=== PATIENT | male | born 1950 | race Caucasian/White ===

== ENCOUNTER → 2016-11-28 | Outpatient (CLI) | payer OTHER ==
[~2016-11-28] VITALS: Ht 175.3 cm; Wt 184.1 kg
[~2016-11-28] MED LIST: ADVA500A INH; ATOR1TAB18 PO; CANA100T PO; CHLO25TA2 PO; CLON0.1T PO; DOXA4TAB3 PO; GLIP10TA6 PO; INSU100V2 SQ; INSULIN HUMAN REGULAR 1,000 UNITS/10 ML VIAL SQ PRN; LACTATED RINGER'S 1000 ML IV SCH; LOSA100T PO; METF1000 PO; METO100T PO; METOPROLOL TARTRATE 25 MG TAB PO PRN; METOPROLOL TARTRATE 50 MG TAB PO ONE; MONT10TA4 PO; NOVOLOGP2 SQ; NOVONP2 SQ; NOVORP2 SQ; PROPOFOL 200 MG/20 ML AMP IV ONE; SODIUM CHLORID 0.9% 500 ML IV SCH; VENTAER INH; XARE20TA PO
[2016-11-28 13:20] VITALS: BP 180/53; PULSE 65; RESP 18; TEMP 98.6; O2SAT 94
[2016-11-28 17:19] VITALS: BP 165/80; PULSE 56; RESP 20; TEMP 97.7; O2SAT 97
--- NOTE | 2016-11-28 23:06 | EKG ---
Date Performed: 11/28/2016 Time Performed: 13:28:28 PTAGE: 66 years EKG: SINUS BRADYCARDIA BORDERLINE ECG PREVIOUS TRACING : 04/18/2001 17.12 Compared to prior tracing no significant change DOCTOR: Harman La Interpretating Date/Time 11/28/2016 23:06:02
--- NOTE | 2016-11-29 07:12 | MR ---
cc: GEOVANNY HAYES M.D., HARRY M.D. DATE OF 1950 DATE OF PROCEDURE 11/28/2016 PROCEDURE Colonoscopy with polypectomies. PAPIER MACHE' MOLDER Performed by Dr. William Sparrow The patient is an outpatient. INDICATIONS FOR PROCEDURE History of colon polyps. MEDICATIONS Sedation per Anesthesiology. INSTRUMENT The Pentax video colonoscope. PROCEDURE After obtaining written informed consent, the patient was placed in the left lateral decubitus position. Adequate sedation was administered. A digital rectal examination was performed. No gross lesions were noted. The prostate was not enlarged or nodular. The colonoscope was advanced to the cecum. The appendiceal orifice and ileocecal valve appeared normal. Upon withdrawal of the instrument the mucosal surfaces were well-visualized. Six small polyps were removed, all measuring less than 5-6 mm, one in the ascending colon, two in the region of the hepatic flexure, one in the proximal transverse colon, two in the sigmoid colon (one may have been sigmoid colon and one may have been descending colon). Retroflexion of the instrument in the rectum revealed no abnormalities. The instrument was withdrawn. The procedure was terminated. The patient tolerated it well and there no apparent complications. Upon completion he was sedated and had normal, stable vital signs. IMPRESSION 1. Colonoscopy to the cecum. 2. Six small polyps removed with cold snare polypectomy. 3. No diverticulosis evident. DISPOSITION The patient is to be observed per routine postprocedure protocol. He may return home, resume his prior diet and medications. We will contact him next week with the histology report and determine timing for follow-up evaluation. MD MO Bennett/JEN /4:26 PM /7:06 AM
== END ==
LOC: HSDC 12:17
DX: Z12.11 Encounter for screening for malignant neoplasm of colon (principal); Z86.010 Personal history of colon polyps; D12.3 Benign neoplasm of transverse colon; D12.4 Benign neoplasm of descending colon; I10 Essential (primary) hypertension
CPT/HCPCS: 00810; 45385; 88305; 93005; J1815; J7120

== ENCOUNTER → 2017-03-21 | Day surgery (SDC) | payer OTHER ==
[~2017-03-21] VITALS: Ht 172.7 cm; Wt 181.5 kg
[~2017-03-21] MED LIST changes: +*RESP: ALBUTEROL 2.5 MG/3 ML NEB (PRN) PERIprocedural Use ONLY NEB ONE; +CHLORHEXIDINE GLUCONATE 2 % 1 PACK (2 CLOTHS) TOPICAL PRN; +DO NOT ADM ANY ANTICOAGULANT DRUGS PRN; +FLUMAZENIL 0.5 MG/5 ML VIAL IV PRN; +LACTATED RINGER'S 1000 ML IV PRN; -LACTATED RINGER'S 1000 ML IV SCH; -METOPROLOL TARTRATE 50 MG TAB PO ONE; +NALOXONE HCL 0.4 MG/ML AMP IV PRN; +POVIDONE IODINE 5% (ANTISEPSIS KIT) 4 APPLICATIONS EACH NARE PRN; +SODIUM CHLORID 0.9% 500 ML IV PRN; -SODIUM CHLORID 0.9% 500 ML IV SCH
--- NOTE | 2017-03-21 08:53 | GIPROC ---
[facility] [address] [facility]. [facility], [id number] EGD PROCEDURE REPORT EXAM DATE: 03/21/2017 PATIENT NAME: Barney Garza MR #: [id number] BIRTHDATE: 1950 ATTENDING: Rohit Dallas MD ORDER #: [id number] BIOLOGY PROFESSOR: Adonay Ward and Una Bruno STATUS: outpatient INDICATIONS: The patient is a 66 yr old male here for an EGD due to nausea PROCEDURE PERFORMED: EGD w/ biopsy MEDICATIONS: Per Anesthesia and None. TOPICAL ANESTHETIC: none CONSENT: The patient understands the risks and benefits of the procedure and understands that these risks include, but are not limited to: sedation, allergic reaction, infection, perforation and/or bleeding. Alternative means of evaluation and treatment include, among others: physical exam, x-rays, and/or surgical intervention. The patient elects to proceed with this endoscopic procedure. medical equipment was checked for proper function. Hand hygiene and appropriate measures for infection prevention was taken. After the risks, benefits and alternatives of the procedure were thoroughly explained, Informed consent was verified, confirmed and timeout was successfully executed by the treatment team. The patient was anesthetized with anesthesia and the Pentax EG-[id number] endoscope was introduced through the mouth and advanced to the second portion of the duodenum. There was mild gastritis distal antrum. GE junction had concern for mild barretts. Biopsy was taken of the antrum to check for h. pylori and of the distal esophagus to rule out barretts. Retroflexed views revealed no abnormalities The gastroscope was then slowly withdrawn and removed. STOMACH: There was mild gastritis in the gastric antrum. ESOPHAGUS: There was short segment Meade's esophagus found in the distal esophagus and at the gastroesophageal junction. Mild. ADVERSE EVENTS: There were no complications. IMPRESSIONS: 1. There was mild gastritis in the gastric antrum 2. There was short segment Meade's esophagus found in the distal esophagus and at the gastroesophageal junction 3. Retroflexed views revealed no abnormalities RECOMMENDATIONS: Await biopsy results. Biopsy results will not be ready for 7-10 days. If you don't hear from us in two weeks, call our office for biopsy results. PATIENT CONDITION: fair DISPOSITION: Home REPEAT EXAM: NONE Rohit Dallas MD eSigned: Rohit Dallas MD 03/21/2017 8:53 AM cc: Lawrence Diaz M.D.
[2017-03-21 09:35] VITALS: BP 168/67; PULSE 65; RESP 20; TEMP 98; O2SAT 100
== END | disposition home or self-care (01) ==
LOC: HSDC 05:39
PROVIDERS: ATTEND Surgery
DX: K29.50 Unspecified chronic gastritis without bleeding (principal); K22.70 Barrett's esophagus without dysplasia; I10 Essential (primary) hypertension; J45.909 Unspecified asthma, uncomplicated; E11.9 Type 2 diabetes mellitus without complications; E78.5 Hyperlipidemia, unspecified; I82.409 Acute embolism and thrombosis of unspecified deep veins of unspecified lower extremity; E66.01 Morbid (severe) obesity due to excess calories; G47.30 Sleep apnea, unspecified; Z68.44 Body mass index [BMI] 60.0-69.9, adult; Z87.891 Personal history of nicotine dependence; Z85.820 Personal history of malignant melanoma of skin; Z79.84 Long term (current) use of oral hypoglycemic drugs; Z79.51 Long term (current) use of inhaled steroids; Z79.4 Long term (current) use of insulin
CPT/HCPCS: 43239; 88305; 88312; 94664; J7120; J7613

== ENCOUNTER 2017-09-23 07:30 | Inpatient (IN) | payer OTHER, MEDICARE ==
[~2017-09-23] VITALS: Ht 175.3 cm; Wt 179.8 kg
[~2017-09-23 07:30] MED LIST changes: -*RESP: ALBUTEROL 2.5 MG/3 ML NEB (PRN) PERIprocedural Use ONLY NEB ONE; -ADVA500A INH; -ATOR1TAB18 PO; +ATOR80TA45 PO; -CHLORHEXIDINE GLUCONATE 2 % 1 PACK (2 CLOTHS) TOPICAL PRN; -DO NOT ADM ANY ANTICOAGULANT DRUGS PRN; -FLUMAZENIL 0.5 MG/5 ML VIAL IV PRN; -INSU100V2 SQ; -INSULIN HUMAN REGULAR 1,000 UNITS/10 ML VIAL SQ PRN; -LACTATED RINGER'S 1000 ML IV PRN; -METOPROLOL TARTRATE 25 MG TAB PO PRN; -NALOXONE HCL 0.4 MG/ML AMP IV PRN; -NOVOLOGP2 SQ; -POVIDONE IODINE 5% (ANTISEPSIS KIT) 4 APPLICATIONS EACH NARE PRN; -PROPOFOL 200 MG/20 ML AMP IV ONE; -SODIUM CHLORID 0.9% 500 ML IV PRN; -XARE20TA PO
[2017-09-24] MEDS ORDERED: FLUT1INH7 INH (15:42)
[2017-09-24] MEDS ORDERED: WARF-23 PO (15:42)
[2017-09-24] MEDS ORDERED: IPRA17I INH (15:42)
[2017-09-25] MEDS ORDERED: BUPIVACAINE/EPINEPHRINE 0.25% PF 30 ML VIAL ONE ×2 (07:14→12:18)
[2017-09-25] MEDS ORDERED: LACTATED RINGER'S 1000 ML IV PRN (07:15)
[2017-09-25] MEDS ORDERED: SODIUM CHLORID 0.9% 500 ML IV PRN (07:15)
[2017-09-25] MEDS ORDERED: METOPROLOL TARTRATE 25 MG TAB PO PRN (07:15)
[2017-09-25] MEDS ORDERED: CHLORHEXIDINE GLUCONATE 2 % 1 PACK (2 CLOTHS) TOPICAL PRN (07:15)
[2017-09-25] MEDS ORDERED: POVIDONE IODINE 5% (ANTISEPSIS KIT) 4 APPLICATIONS EACH NARE PRN (07:15)
[2017-09-25] MEDS ORDERED: metroNIDAZOLE 500 MG INJ 100 ML IV SCH (07:30)
[2017-09-25] MEDS ORDERED: ACETAMINOPHEN 1000 MG/100 ML 100 ML IV SCH (07:30)
[2017-09-25] MEDS ORDERED: SCOPOLAMINE 1.5 MG PATCH T-DERMAL SCH (07:30)
[2017-09-25] MEDS ORDERED: ONDANSETRON HCL 4 MG/2 ML VIAL IV PUSH SCH (07:30)
[2017-09-25] MEDS ORDERED: APREPITANT 40 MG CAP PO SCH (07:30)
[2017-09-25] MEDS ORDERED: ceFAZolin 2 GM PREMIX 50 ML IV SCH (07:30)
[2017-09-25 08:21] LABS: PROTHROMBIN TIME - PATIENT 10.3 SEC (9.8-11.6)
[2017-09-25] MEDS ORDERED: LIDOCAINE HCL 1% PF 5 ML SYRINGE OTHER ONE (12:00)
[2017-09-25] MEDS ORDERED: ONDANSETRON HCL 4 MG/2 ML VIAL IV PUSH ONE (12:00)
[2017-09-25] MEDS ORDERED: LACTATED RINGER'S 1000 ML INJ 1,000 ML IV ONE (12:00)
[2017-09-25] MEDS ORDERED: PROPOFOL 200 MG/20 ML AMP IV ONE (12:00)
[2017-09-25] MEDS ORDERED: GLYCOPYRROLATE 1 MG/5 ML SYRINGE IV PUSH ONE (12:00)
[2017-09-25] MEDS ORDERED: DEXAMETHASONE SOD PHOS 4 MG/ML VIAL IV ONE (12:00)
[2017-09-25] MEDS ORDERED: NEOSTIGMINE 5 MG/5 ML SYRINGE IV PUSH ONE (12:00)
[2017-09-25] MEDS ORDERED: ROCURONIUM INJ 50 MG/5 ML SYRINGE IV PUSH ONE (12:00)
[2017-09-25] MEDS ORDERED: HYDROmorphone HCL PF 2 MG/ML VIAL ONE (12:43)
[2017-09-25] MEDS ORDERED: diphenhydrAMINE HCL 50 MG/ML VIAL IV PUSH PRN (15:15)
[2017-09-25] MEDS ORDERED: Post-op Orders (for Pharmacy) OTHER ONE (15:15)
[2017-09-25] MEDS ORDERED: ONDANSETRON HCL 4 MG/2 ML VIAL IV PUSH PRN ×2 (15:15)
[2017-09-25] MEDS ORDERED: diphenhydrAMINE HCL ELIXIR 12.5 MG/5 ML CUP PO PRN (15:15)
[2017-09-25] MEDS ORDERED: GLUCAGON 1 MG/ML VIAL OTHER PRN (15:15)
[2017-09-25] MEDS ORDERED: DEXTROSE 50% IN WATER 50 ML VIAL(D50) IV PUSH PRN (15:15)
[2017-09-25] MEDS ORDERED: ENALAPRILAT 1.25 MG/ML VIAL IV PUSH PRN (15:15)
[2017-09-25] MEDS ORDERED: ACETAMINOPHEN 325MG/HYDROcodone 7.5MG/15ML UDC PO PRN (15:15)
[2017-09-25] MEDS ORDERED: NALOXONE HCL 0.4 MG/ML AMP IV PUSH PRN (15:15)
[2017-09-25] MEDS ORDERED: SODIUM CHLORIDE 0.9% FLUSH 10 ML FLUSH IV FLUSH PRN (15:15)
[2017-09-25] MEDS ORDERED: DO NOT ADM ANY ANTICOAGULANT DRUGS PRN (15:25)
[2017-09-25] MEDS ORDERED: *morphine SULFATE 8 MG/ML PERIprocedure ONLY ONE (15:47)
[2017-09-25] MEDS: 1/2 NS + KCL 20 MEQ INJ 1,000 ML IV SCH ×2 (16:00→22:25)
[2017-09-25] MEDS ORDERED: *RESP: ALBUTEROL 2.5 MG/3 ML NEB (PRN) PERIprocedural Use ONLY NEB ONE (16:18)
[2017-09-25] MEDS: MORPHINE SULFATE 30 MG/30 ML PCA IV SCH (16:44)
[2017-09-25] MEDS: RESP: ALBUTEROL 2.5 MG/3 ML NEB (SCH) INH ×2 (17:00→23:51)
[2017-09-25] MEDS: METOCLOPRAMIDE HCL 10 MG/2 ML VIAL IV PUSH SCH ×2 (17:11→22:19)
[2017-09-25] MEDS: INSULIN NovoLIN REGULAR SUPPLEMENTAL SCALE SQ SCH ×2 (17:23→22:13)
[2017-09-25] MEDS ORDERED: ENOXAPARIN SODIUM 40 MG/0.4 ML SYRINGE SQ ONE (20:00)
[2017-09-25 20:11] VITALS: BP 118/46; PULSE 88; RESP 18; TEMP 98.5; O2SAT 95
[2017-09-25] MEDS: PCA - TOTAL MG MORPHINE DELIVERED PER SHIFT SCH (22:00)
[2017-09-25] MEDS: SODIUM CHLORIDE 0.9% FLUSH 10 ML FLUSH IV FLUSH SCH (22:20)
[2017-09-25] MEDS: metroNIDAZOLE 500 MG INJ 100 ML IV SCH (22:23)
[2017-09-25 23:51] VITALS: O2SAT 93
[2017-09-26] VITALS (7 sets, daily range): BP systolic 120–147; BP diastolic 56–63; PULSE 84–98; RESP 16–18; TEMP 96.5–98.6; O2SAT 90–96
[2017-09-26] MEDS: PCA - TOTAL MG MORPHINE DELIVERED PER SHIFT SCH (05:28)
[2017-09-26] MEDS: metroNIDAZOLE 500 MG INJ 100 ML IV SCH ×2 (05:35→12:14)
[2017-09-26] MEDS: METOCLOPRAMIDE HCL 10 MG/2 ML VIAL IV PUSH SCH ×2 (05:36→10:57)
[2017-09-26 07:00] LABS: AUTOMATED NEUTROPHIL # 8.3 TH/MM3 (1.8-7.7); BASOPHIL % 0.2 % (0.0-2.0); HEMOGLOBIN 12.5 GM/DL (13.0-17.0); LYMPH % 12.7 % (9.0-44.0); LYMPHOCYTE # 1.3 TH/MM3 (1.0-4.8); MEAN CELL VOLUME 93.2 FL (80.0-100.0); MEAN CORPUSCULAR HEMOGLOBIN 30.7 PG (27.0-34.0); MEAN CORPUSCULAR HGB CONC 32.9 % (32.0-36.0); MEAN PLATELET VOLUME 9.4 FL (7.0-11.0); MONO % 8.3 % (0.0-8.0); MONOCYTE # 0.9 TH/MM3 (0-0.9); NEUT % 78.8 % (16.0-70.0); PLATELET COUNT 131 TH/MM3 (150-450); RED BLOOD COUNT 4.08 MIL/MM3 (4.50-5.90); RED CELL DISTRIBUTION WIDTH 15.9 % (11.6-17.2); WHITE BLOOD COUNT 10.5 TH/MM3 (4.0-11.0)
[2017-09-26] MEDS: RESP: ALBUTEROL 2.5 MG/3 ML NEB (SCH) INH ×5 (07:17→23:59)
[2017-09-26 07:23] LABS: BICARBONATE 23.8 MEQ/L (21.0-32.0); CALCIUM 8.1 MG/DL (8.5-10.1); CREATININE 1.66 MG/DL (0.60-1.30); MAGNESIUM 1.9 MG/DL (1.5-2.5)
[2017-09-26] MEDS: MORPHINE SULFATE 30 MG/30 ML PCA IV SCH (07:41)
[2017-09-26] MEDS ORDERED: ENOXAPARIN SODIUM 60 MG/0.6 ML SYRINGE SQ SCH (08:00)
[2017-09-26] MEDS: PANTOPRAZOLE SOD 40 MG DELAYED RELEASE TAB PO SCH (08:30)
[2017-09-26] MEDS: INSULIN NovoLIN REGULAR SUPPLEMENTAL SCALE SQ SCH ×4 (08:32→20:37)
[2017-09-26] MEDS: SODIUM CHLORIDE 0.9% FLUSH 10 ML FLUSH IV FLUSH SCH ×2 (08:37→20:37)
[2017-09-26] MEDS: 1/2 NS + KCL 20 MEQ INJ 1,000 ML IV SCH ×3 (09:08→20:38)
[2017-09-26] MEDS ORDERED: INFLUENZA VIRUS VACCINE (QUADRIVALENT) 0.5 ML SYR IM ONE (10:00)
[2017-09-26] MEDS: metFORMIN HCL 500 MG TAB PO SCH ×2 (10:57→16:44)
[2017-09-26] MEDS ORDERED: IPRATROPIUM BROMIDE 17 MCG/ACT 12.9 GM INHALER INH SCH (11:00)
[2017-09-26] MEDS: TIOTROPIUM BROMIDE 18 MCG INH INH SCH (11:29)
[2017-09-26] MEDS: FLUTICASONE 200 MCG/VILANTEROL 25 MCG INHALER INH SCH (11:29)
--- NOTE | 2017-09-26 11:39 | HHI.PR ---
Subjective Subjective Notes Fells good No GI complaints Tolerating PO fluids Objective Vitals/I&O Vital Signs Date Time Temp Pulse Resp B/P (MAP) Pulse Ox O2 Delivery O2 Flow Rate FiO2 09/26/17 08:00 97.5 90 17 147/63 (91) 90 09/25/17 23:51 Nasal Cannula 3.00 Labs Laboratory Tests Test 09/26/17 06:26 White Blood Count 10.5 Red Blood Count 4.08 Hemoglobin 12.5 Hematocrit 38.0 Mean Corpuscular Volume 93.2 Mean Corpuscular Hemoglobin 30.7 Mean Corpuscular Hemoglobin Concent 32.9 Red Cell Distribution Width 15.9 Platelet Count 131 Mean Platelet Volume 9.4 Neutrophils (%) (Auto) 78.8 Lymphocytes (%) (Auto) 12.7 Monocytes (%) (Auto) 8.3 Eosinophils (%) (Auto) 0.0 Basophils (%) (Auto) 0.2 Neutrophils # (Auto) 8.3 Lymphocytes # (Auto) 1.3 Monocytes # (Auto) 0.9 Eosinophils # (Auto) 0.0 Basophils # (Auto) 0.0 CBC Comment DIFF FINAL Differential Comment Blood Urea Nitrogen 37 Creatinine 1.66 Random Glucose 262 Calcium Level 8.1 Magnesium Level 1.9 Sodium Level 136 Potassium Level 4.6 Chloride Level 103 Carbon Dioxide Level 23.8 Anion Gap 9 Estimat Glomerular Filtration Rate 42 Cardiovascular: Regular Lungs: Wheezes Abdomen: Post-op tenderness Extremities: Perfused Wound Wound : Wound Location: Abdomen Appearance: Clean & Dry A/P Assessment and Plan 67yo M POD# laparoscopic RnY -Restart metformin, change glipizide to 5mg OD -Restart inhalers, evaluate for home walk test -Continue with frequent ambulation -Continue to increase fluids as tolerated Discharge Planning D/C home probably tomorrow Jina White Sep 26, 2017 11:39
[2017-09-26] MEDS: glipiZIDE 5 MG TAB PO SCH (13:02)
[2017-09-26] MEDS ORDERED: METOCLOPRAMIDE HCL 10 MG/2 ML VIAL IV PUSH PRN (15:15)
[2017-09-26] MEDS ORDERED: WARFARIN SOD 5 MG TAB PO SCH (16:00)
[2017-09-26] MEDS: ENOXAPARIN SODIUM 60 MG/0.6 ML SYRINGE SQ SCH (20:37)
[2017-09-27] VITALS (7 sets, daily range): BP systolic 146–153; BP diastolic 65–67; PULSE 92–96; RESP 21–22; TEMP 98.7–99.8; O2SAT 91–96
[2017-09-27] MEDS: ACETAMINOPHEN 325MG/HYDROcodone 7.5MG/15ML UDC PO PRN ×2 (00:05→05:41)
[2017-09-27] MEDS: RESP: ALBUTEROL 2.5 MG/3 ML NEB (SCH) INH ×3 (03:56→11:51)
[2017-09-27] MEDS: 1/2 NS + KCL 20 MEQ INJ 1,000 ML IV SCH (05:38)
[2017-09-27] MEDS: glipiZIDE 5 MG TAB PO SCH (08:02)
[2017-09-27] MEDS: metFORMIN HCL 500 MG TAB PO SCH (08:02)
[2017-09-27] MEDS: INSULIN NovoLIN REGULAR SUPPLEMENTAL SCALE SQ SCH ×2 (08:03→12:35)
[2017-09-27] MEDS: PANTOPRAZOLE SOD 40 MG DELAYED RELEASE TAB PO SCH (08:03)
[2017-09-27] MEDS: ENOXAPARIN SODIUM 60 MG/0.6 ML SYRINGE SQ SCH (08:03)
[2017-09-27] MEDS: TIOTROPIUM BROMIDE 18 MCG INH INH SCH (08:05)
[2017-09-27] MEDS: FLUTICASONE 200 MCG/VILANTEROL 25 MCG INHALER INH SCH (08:05)
[2017-09-27] MEDS: SODIUM CHLORIDE 0.9% FLUSH 10 ML FLUSH IV FLUSH SCH (08:39)
[2017-09-27] MEDS ORDERED: INSULIN HUMAN NPH 1,000 UNITS/10 ML VIAL SQ SCH (11:45)
--- NOTE | 2017-09-27 12:34 | HHI.PR ---
Subjective Subjective Notes Tolerating PO fluids No GI complaints Objective Vitals/I&O Vital Signs Date Time Temp Pulse Resp B/P (MAP) Pulse Ox O2 Delivery O2 Flow Rate FiO2 09/27/17 12:00 98.7 92 21 150/67 (94) 95 09/27/17 07:48 Nasal Cannula 2.00 Radiology Last Impressions Chest X-Ray 09/27/17 0000 Signed Impressions: Service Date/Time: Wednesday, September 27, 2017 12:54 - CONCLUSION: 1. Limited exam due to motion artifact with questionable subtle nodular opacity in the right lower lung zone. Suspect this reflects confluence of shadows. Consider formal PA and lateral views for better evaluation. Luis Antonio Marc MD Cardiovascular: Regular Lungs: Other (diminished) Abdomen: Post-op tenderness Extremities: Perfused Wound Wound : Wound Location: Abdomen Appearance: Clean & Dry A/P Assessment and Plan 67yo M POD# laparoscopic RnY -Add 30u NPH, pt states he was experiencing hypoglycemia at home with regular doses, will monitor in order to make recommendations for home -STAT CXR for shortness of breath -Continue frequent ambulation -Continue to increase fluids as tolerated Discharge Planning D/C home later today Jina White Sep 27, 2017 12:34
--- NOTE | 2017-09-27 13:33 | RADRPT ---
EXAM DATE/TIME: 09/27/2017 12:54 [place] COMPARISON: No previous studies available for comparison. INDICATIONS : Short of breath. MEDICAL HISTORY : None. SURGICAL HISTORY : rou en y ENCOUNTER: Initial ACUITY: 1 day PAIN SCORE: 0/10 LOCATION: chest FINDINGS: Exam is limited by motion artifact. There is questionable subtle nodular opacity in the right lower l tyler zone. Cardiomediastinal contours are within normal limits given technique. Structures are intact. CONCLUSION: 1. Limited exam due to motion artifact with questionable subtle nodular opacity in the right lower thee ng zone. Suspect this reflects confluence of shadows. Consider formal PA and lateral views for better evaluation. Luis Antonio Marc MD on September 27, 2017 at 13:28 Board Certified Radiologist. This report was verified electronically.
[2017-09-27] MEDS ORDERED: NOVONP2 SQ (14:26)
[2017-09-28] MEDS ORDERED: INSULIN HUMAN NPH 1,000 UNITS/10 ML VIAL SQ SCH (08:00)
--- NOTE | 2017-10-17 07:24 | MP ---
cc: ROBERT CHENG DATE OF 1950 DATE OF OPERATION 09/25/2017 PREOPERATIVE DIAGNOSIS Morbid obesity with a BMI of 59, complicated by obstructive sleep apnea, essential hypertension, type 2 diabetes, hypercholesterolemia. POSTOPERATIVE DIAGNOSIS Morbid obesity with a BMI of 59, complicated by obstructive sleep apnea, essential hypertension, type 2 diabetes, hypercholesterolemia. PROCEDURE Laparoscopic Nona-en-Y gastric bypass, 100-cm Nona limb, antegastric, antecolic SURGEON Robert Cheng MD HELICOPTER ENGINEER MD Dr. Burt Carlin's assistance was necessary for the procedure due to the complexity of the procedure. Dr. Dallas assisted with manipulation and exposure during the procedure. Dr. Dallas was present for the entire procedure. The players assistant provided by [email or web address] was utilized managing the camera. ANESTHESIA General endotracheal anesthesia. ESTIMATED BLOOD LOSS Scant. FINDINGS Fatty liver. OPERATION The patient was brought into the operating room and placed on the operating table in supine position. Bilateral sequential inflation devices were placed on the lower extremities, general anesthesia instituted, Mcdermott catheter placed, antibiotics initiated. The abdomen was prepped and draped sterilely. A point 18 cm distal to the xiphoid in the midline was anesthetized with 0.25% Marcaine with epinephrine. A skin incision was made, a 5-mm Optiview port placed under direct vision and pneumoperitoneum created. Under direct vision, a 5-mm left upper quadrant, a 12-mm left upper quadrant, a 12-mm right upper quadrant and 5-mm right upper quadrant ports were placed. Prior to placement of all ports, the skin and peritoneum were anesthetized with 0.25% Marcaine with epinephrine. The patient patient's omentum was taken off of the abdominal wall using a harmonic. It was split down the middle to create a path for the Nona limb. The ligament of Treitz was identified, a point 40 cm distal identified, the small bowel divided using an Alcalde Flex staple with a white load, reinforced with SeamGuard. The distal segment was brought up for a distance of 100 cm, enterotomy created in this region, enterotomy created in the biliopancreatic limb and a [id number] stapled jejunojejunostomy created in the usual manner. The mesenteric defect of the jejunojejunostomy was closed with 2-0 Surgidac suture in a running manner. The patient was placed in reverse Trendelenburg position, left side up. The Suyapa Flex retractor placed and the left lobe of the liver retracted. The angle of His was taken down bluntly, a point 5 cm distal to the GE junction along the lesser curve identified, the lesser sac entered using blunt dissection, the stomach partitioned horizontally using the Alcalde Flex stapler blue load. Additional firings were taken toward the angle of His to completely divide the stomach. A gastrotomy was created in the mynor-stomach, enterotomy in the Nona limb, a gastrojejunostomy created with a stomal opening of 2 cm. An 18-Latvian OG tube was placed across the anastomosis. The defect was then closed in two layers of running 2-0 Vicryl. Prior to placement of the second layer, methylene blue was instilled through the OG tube. There was no evidence of extravasation. Evicel was then placed over the gastrojejunostomy, jejunojejunostomy and all staple lines, a 10 flat LIUDMILA placed posterior to the gastrojejunostomy. The operative field was inspected. Hemostasis was present. The Suyapa Flex retractor was removed. The tubing of the LIUDMILA was brought out through the 5-mm port site in the right upper quadrant. The pneumoperitoneum was released, all ports removed, all skin incisions closed with 4-0 Monocryl. The abdominal wall was cleaned and a sterile dressing placed. The patient was awakened and taken to recovery room stable. MD DAMEON Melchor/JEN /1:32 PM /7:01 AM
== END 2017-09-27 16:22 | disposition home or self-care (01) | DRG 621 ==
LOC: HSDI 09-25 05:44 → N07B 09-25 18:39
PROVIDERS: ADMIT Surgery; ATTEND Surgery
PROC: 0D164ZA Bypass Stomach to Jejunum, Percutaneous Endoscopic Approach (ICD-10-PCS; 2017-09-25)
PROC: 0D1A4ZA Bypass Jejunum to Jejunum, Percutaneous Endoscopic Approach (ICD-10-PCS; principal; 2017-09-25 12:06)
DX: E66.01 Morbid (severe) obesity due to excess calories (principal); K76.0 Fatty (change of) liver, not elsewhere classified; I10 Essential (primary) hypertension; E11.9 Type 2 diabetes mellitus without complications; G47.33 Obstructive sleep apnea (adult) (pediatric); R06.02 Shortness of breath; Z68.43 Body mass index [BMI] 50.0-59.9, adult; E78.00 Pure hypercholesterolemia, unspecified
CPT/HCPCS: 71010; 80048; 82948; 83735; 85025; 85610; 94150; 94620; 94640; 94664; J0131; J0690; J1100; J1170; J1650; J1815; J2270; J2405; J2710; J2765; J7120; J7613; J8501